=== PATIENT | female | born 1970 | race African-American/Black ===

== ENCOUNTER 2018-08-12 00:06 | Emergency (ER) | payer OTHER ==
[~2018-08-12] VITALS: Ht 162.6 cm; Wt 90.7 kg
[2018-08-12 00:13] VITALS: BP 164/104
[2018-08-12] MEDS ORDERED: NORCO 5-325 TA1 EAC1 PO (00:23)
[2018-08-12] MEDS ORDERED: AMOXICILLIN 50500 MG PO (00:23)
== END 2018-08-12 00:32 | disposition home or self-care (01) ==
LOC: M.ERS 00:06
DX: H66.92 Otitis media, unspecified, left ear (principal)